=== PATIENT | female | born 1990 | race Caucasian/White ===

== ENCOUNTER 2017-12-26 15:37 | Emergency (ER) | payer BC ==
[2017-12-26 16:06] VITALS: BP 109/74
--- NOTE | 2017-12-26 16:38 | UC ---
UC General HPI - HPI Summary HPI Summary: pt c/o scratchy throat, cough, body aches and feeling warm since yesterday. - History of Current Complaint Chief Complaint: UCGeneralIllness Stated Complaint: FLU SXS Time Seen by Provider: 12/26/17 16:21 Hx Obtained From: Patient Hx Last Menstrual Period: 11/25/17 Onset/Duration: Gradual Onset Timing: Constant Pain Intensity: 2 Associated Signs & Symptoms: Positive: Cough. Negative: Diarrhea, Dysuria, Headache, Nausea, SOB, Vomiting, Wheezing - Allergy/Home Medications Allergies/Adverse Reactions: Allergies Allergy/AdvReac Type Severity Reaction Status Date / Time No Known Allergies Allergy Verified 12/26/17 16:06 Home Medications: Home Medications Hydroxychloroquine TAB* [Plaquenil TAB*] 1.5 tab PO BEDTIME 12/26/17 [History Confirmed 12/26/17] sulfaSALAzine TAB* [Azulfidine TAB*] 500 mg PO BID 12/26/17 [History Confirmed 12/26/17] PMH/Surg Hx/FS Hx/Imm Hx - Additional Past Medical History Additional PMH: RA - Surgical History Surgical History: Yes Surgery Procedure, Year, and Place: breast implants. lasik eye - Social History Occupation: Employed Full-time Alcohol Use: None Substance Use Type: None Smoking Status (MU): Never Smoked Tobacco Review of Systems Constitutional: Fever ENT: Sore Throat Respiratory: Cough Musculoskeletal: Myalgia All Other Systems Reviewed And Are Negative: Yes Physical Exam Triage Information Reviewed: Yes Appearance: Well-Appearing Vital Signs: Initial Vital Signs Temp 98.5 F 12/26/17 16:01 Pulse 80 12/26/17 16:01 Resp 16 12/26/17 16:01 BP 109/74 12/26/17 16:01 Pulse Ox 99 12/26/17 16:01 Vital Signs Reviewed: Yes Eyes: Positive: Conjunctiva Clear ENT: Positive: Pharynx normal, TMs normal. Negative: Nasal congestion, Nasal drainage Neck: Positive: Supple, Nontender, No Lymphadenopathy Respiratory: Positive: Lungs clear, Normal breath sounds, No respiratory distress Cardiovascular: Positive: RRR, No Murmur, Pulses Normal Abdomen Description: Positive: Nontender, No Organomegaly, Soft Bowel Sounds: Positive: Present Neurological: Positive: Alert Psychological: Positive: Age Appropriate Behavior Skin Exam: Normal Diagnostics - Laboratory Diagnostic Studies Completed/Ordered: rapid flu=neg. rapid strep=neg Course/Dx - Course Course Of Treatment: pt s/s's are c/w BRIAN and pt has RA. she will be tx with tamiflu. close f/u advised. - Differential Dx - Multi-Symptom Provider Diagnoses: Influenza like illness Discharge - Discharge Plan Condition: Stable Disposition: HOME Prescriptions: Oseltamivir CAP* [Tamiflu CAP*] 75 mg PO BID 5 Days #10 cap Patient Education Materials: Influenza (ED) Referrals: Cain Lara [Primary Care Provider] - If Needed Jeffery Selby MD [Medical Doctor] - 5 Days
== END 2017-12-26 17:06 | disposition home or self-care (01) ==
LOC: UCCORT 15:37
DX: J11.1 Influenza due to unidentified influenza virus with other respiratory manifestations (principal); M06.9 Rheumatoid arthritis, unspecified
CPT/HCPCS: 87502; 87651; 99212; G0463

== ENCOUNTER 2023-04-26 18:10 | Inpatient (IN) ==
[2023-04-26] MEDS ORDERED: Calcium Carb (TUMS) 500 mg CHEW TAB PO PRN (18:34)
[2023-04-26] MEDS ORDERED: Buffered Lidocaine 1% SYRIN 1 ml INTRADERM ONE (18:34)
[2023-04-26] MEDS ORDERED: Ondansetron 4 mg VIAL 2 MG/ML 2 ml VIAL IV PRN ×2 (18:34→21:00)
[2023-04-26] MEDS ORDERED: Lactated Ringers 1000 ml BAG 1,000 ML IV ONE ×2 (18:34→21:27)
[2023-04-26] MEDS ORDERED: Promethazine INJ(RESTRICTED) 25 MG/ML 1 ml VIAL IV PRN (18:34)
[2023-04-26] MEDS ORDERED: Lactated Ringers 1000 ml BAG 1,000 ML IV SCH (19:00)
[2023-04-26] MEDS ORDERED: miSOPROStol 100 mcg TAB PO ONE ×2 (19:24→23:58)
[2023-04-26 21:26] LABS: Urine Benzodiazepine Screen None Detected (None Detect); Urine Cannabinoids Screen None Detected (None Detect); Urine Opiates Screen None Detected (None Detect)
[2023-04-26 22:35] LABS: ABS Eosinophils 0.1 10^3/uL (0.0-0.5); ABS Lymphocytes 2.5 10^3/uL (1.0-4.8); ABS Monocytes 0.7 10^3/uL (0.0-0.9); ABS Neutrophils 6.1 10^3/uL (1.5-7.6); ABS Nucleated RBC 0.02 10^3/ul; Hematocrit 34.1 % (35-45); Hemoglobin 11.7 g/dL (11.5-14.3); Lymphocyte % 26.3 %; Mean Corpuscular Hemoglobin 31.4 pg (27-33); Mean Corpuscular Hgb Conc 34.2 g/dL (31-36); Mean Corpuscular Volume 91.9 fL (80-97); Mean Platelet Volume 9.2 fL (7.5-11.2); Nucleated Red Blood Cells % 0.2 /100 WBC (0.0-0.4); Platelet Count 280 10^3/uL (150-450); Red Blood Count 3.71 10^6/uL (3.63-4.92); Red Cell Distribution Width 12.3 % (12-17); White Blood Count 9.5 10^3/uL (3.8-11.8)
[2023-04-27] MEDS ORDERED: Oxytocin in LR 20,000 MILLI.UNIT/1,000 ML BAG IV SCH ×2 (08:00→22:15)
[2023-04-27] MEDS ORDERED: OBEPIDURAL (200 ML) 200 ML EPIDURAL ONE (12:46)
[2023-04-27] MEDS ORDERED: Lidocaine 1.5% EPI 1:200,000 30 ML SDV ONE (12:46)
[2023-04-27] MEDS ORDERED: Bupivacaine 0.25% SDV PF 10 ML VIAL INJ ONE (12:48)
[2023-04-27] MEDS ORDERED: Phenylephrine 40 mcg/mL 10mL (400mcg) SYRINGE IV PUSH PRN ×2 (13:22)
[2023-04-27] MEDS ORDERED: Lactated Ringers 1000 ml BAG 1,000 ML IV ONE (13:22)
[2023-04-27] MEDS: Lactated Ringers 1000 ml BAG 1,000 ML IV SCH ×2 (13:24→15:12)
[2023-04-27] MEDS ORDERED: OBEPIDURAL (200 ML) 200 ML EPIDURAL SCH (14:00)
[2023-04-27] MEDS ORDERED: ceFOXitin 2 GM IVPREMIX 2 GM/50 ML BAG IVPB ONE (20:23)
[2023-04-27] MEDS ORDERED: fentaNYL 100 mcg/2 ml 50 MCG/ML VIAL ONE (20:38)
[2023-04-27] MEDS ORDERED: Lidocaine 2% w/ EPI 1:200,000 MPF 20 ML SDV VIAL ONE (20:40)
[2023-04-27] MEDS ORDERED: Sodium Citrate/Citric Acid LIQ 15 ML UDC ONE (20:49)
[2023-04-27] MEDS ORDERED: Morphine PF AMP (0.5MG/ML) 5 MG/10 ML AMP ONE (21:03)
[2023-04-27] MEDS ORDERED: Naloxone 0.4 mg VIAL 0.4 mg/ml 1 ml VIAL IV PUSH PRN (21:07)
[2023-04-27] MEDS ORDERED: Ondansetron 4 mg VIAL 2 MG/ML 2 ml VIAL IV PRN (21:07)
[2023-04-27] MEDS ORDERED: Metoclopramide 5 MG/ML VIAL (10 mg) IV PRN (21:07)
[2023-04-27] MEDS ORDERED: Acetaminophen IV 1 GM/100ML 1,000 MG/100 ML BAG IV PRN (21:07)
[2023-04-27] MEDS ORDERED: Oxytocin 10 UNITS/ML 1 ML VIAL ONE (21:27)
[2023-04-27] MEDS ORDERED: Ondansetron 4 mg VIAL 2 MG/ML 2 ml VIAL ONE (21:27)
[2023-04-27] MEDS ORDERED: Dexamethasone IV 4 MG/ML VIAL 1 ml VIAL ONE (21:27)
[2023-04-27] MEDS ORDERED: Dibucaine 1% OINT 28.35 GM TUBE PR PRN (22:11)
[2023-04-27] MEDS ORDERED: Witch Hazel PAD JAR TOPICAL PRN (22:11)
[2023-04-27] MEDS ORDERED: Glycerin ADULT 2.4 gm SUPP PR PRN (22:11)
[2023-04-27] MEDS ORDERED: Lactated Ringers 1000 ml BAG 1,000 ML IV SCH (23:00)
[2023-04-28 06:59] LABS: Hematocrit 28.1 % (35-45); Hemoglobin 9.7 g/dL (11.5-14.3); Mean Corpuscular Hemoglobin 31.8 pg (27-33); Mean Corpuscular Hgb Conc 34.4 g/dL (31-36); Mean Corpuscular Volume 92.3 fL (80-97); Mean Platelet Volume 8.8 fL (7.5-11.2); Platelet Count 206 10^3/uL (150-450); Red Blood Count 3.05 10^6/uL (3.63-4.92); Red Cell Distribution Width 12.4 % (12-17); White Blood Count 25.4 10^3/uL (3.8-11.8)
[2023-04-28 08:01] LABS: ABS Basophils 0.1 10^3/uL (0.0-0.1); ABS Lymphocytes 0.9 10^3/uL (1.0-4.8); ABS Monocytes 1.1 10^3/uL (0.0-0.9); ABS Neutrophils 23.3 10^3/uL (1.5-7.6); Lymphocyte % 3.7 %
[2023-04-28 08:02] LABS: Toxic Granulation 1+
[2023-04-28 08:03] LABS: Anisocytosis 1+
[2023-04-30 09:00] VITALS: BP 109/68
== END 2023-04-30 11:52 | disposition home or self-care (01) | DRG 788 ==
LOC: MCHOBOUT 18:10 → MCHOB 18:54
PROVIDERS: ADMIT Advanced Practice Midwife; ATTEND Advanced Practice Midwife